=== PATIENT | female | born 1955 | race Caucasian/White ===

== ENCOUNTER 2017-10-31 11:33 | Day surgery (SDC) | payer OTHER ==
[~2017-10-31] VITALS: Ht 162.6 cm; Wt 59.7 kg
[~2017-10-31 11:33] MED LIST: Aspirin EC325 MG PO; Calcium 250+D1 EACH PO; LOSA25 PO
== END 2017-10-31 14:00 | disposition home or self-care (01) ==
LOC: ORSCSDS 11:33
PROVIDERS: Internal Medicine Gastroenterology
PROC: 0DBH8ZX Excision of Cecum, Via Natural or Artificial Opening Endoscopic, Diagnostic (ICD-10-PCS; principal; 2017-10-31 13:00)
DX: Z12.11 Encounter for screening for malignant neoplasm of colon (principal); D12.0 Benign neoplasm of cecum; K64.8 Other hemorrhoids; K57.30 Diverticulosis of large intestine without perforation or abscess without bleeding; I10 Essential (primary) hypertension; Z79.82 Long term (current) use of aspirin
CPT/HCPCS: 88305; J7120